=== PATIENT | female | born 1940 | race Asian ===

== ENCOUNTER → 2020-02-15 | Outpatient (CLI) | payer MEDICARE ==
[~2020-02-15] MED LIST: ACID1TAB7 PO; ALENDRONATE PO; CEFT2FRO2 IV; LISINOPRIL PO; OMNIPAQUE 350 MG/ML, 150 ML BOTTLE ONE
== END | disposition home or self-care (01) ==
LOC: CFH 10:36
PROVIDERS: ATTEND Internal Medicine Infectious Disease
DX: N28.1 Cyst of kidney, acquired (principal); M51.36 Other intervertebral disc degeneration, lumbar region; M41.86 Other forms of scoliosis, lumbar region; N10 Acute pyelonephritis
CPT/HCPCS: 74178; Q9967